=== PATIENT | male | born 1945 | race Caucasian/White ===

== ENCOUNTER 2024-03-06 02:39 | Outpatient (CLI) | payer MEDICARE, SELFPAY ==
[2024-03-06 09:24] LABS: Abs Immature Grans 0.04 10^3/uL (0.0-0.06); Absolute Basophil Count 0.04 10^3/uL (0.0-0.2); Absolute Eosinophil Count 0.49 10^3/uL (0.0-0.7); Absolute Monocyte Count 0.69 10^3/uL (0.1-0.8); Absolute Neutrophil Count 4.91 10^3/uL (1.2-6.7); Basophils % 0.6 %; Eosinophils % 7.1 %; HCT 40.8 % (40.0-50.0); HGB 13.1 g/dL (13.5-17.5); Immature Grans % 0.6 %; Lymphocytes % 10.2 %; MCH 31.3 pg (27.0-33.0); MCHC 32.1 % (32.0-36.0); MCV 98 fL (80-95); MPV 9.2 fL (8.0-11.0); Neutrophils % 71.5 %; Platelet Count 150 10^3/uL (130-400); RBC 4.18 10^6/uL (4.36-5.78); RDW 12.2 % (11.8-14.1); RDW-SD 43.9 fL; WBC 6.87 10^3/uL (4.4-10.8)
[2024-03-06 09:57] LABS: ALT 24 U/L (16-63); AST 20 U/L (15-37); Albumin 3.6 g/dL (3.4-5.0); Alkaline Phosphatase 65 U/L (46-116); Anion Gap 3.9 mmol/L (3-11); BUN 13 mg/dL (7-18); Bilirubin, Total 0.48 mg/dL (0.2-1.0); CO2 30.1 mmol/L (21.0-32.0); CREATININE 0.8 mg/dL (0.70-1.30); Chloride 111 mmol/L (98-107); Estimated GFR 89.47 (mL/min/1.73m2); Glucose 83 mg/dL (74-106); Potassium 4.8 mmol/L (3.5-5.1); Sodium 145 mmol/L (136-145); Total Protein 6.8 g/dL (6.4-8.2)
[2024-03-06 10:02] LABS: Calcium 9.6 mg/dL (8.5-10.1)
== END 2024-03-06 02:40 | disposition home or self-care (01) ==
LOC: LBO 02:39
PROVIDERS: Visit Provider Colon & Rectal Surgery
DX: C61 Malignant neoplasm of prostate (principal); Z79.818 Long term (current) use of other agents affecting estrogen receptors and estrogen levels
CPT/HCPCS: 36415; 80053; 85025